=== PATIENT | male | born 1965 | race Caucasian/White ===

== ENCOUNTER 2021-10-13 09:04 | Emergency (ER) | payer OTHER ==
[~2021-10-13] VITALS: Ht 175.3 cm; Wt 89.8 kg
[2021-10-13 09:22] VITALS: BP 144/81
--- NOTE | 2021-10-13 09:37 | NUR ---
56/M PRESENTS TO ED WITH C/O LOWER BACK PAIN RADIATING DOWN BILATERAL LEGS SINCE WEDNESDAY MORNING, DENIES RECENT INJURY OR TRAUMA. PATIENT REPORTS PAIN RADIATING DOWN RIGHT LEG ON WEDNESDAY BUT STATES TODAY PAIN IS NOW RADIATING DOWN BILATERAL LEGS. PATIENT REPORTS HE HAS BEEN TAKING TYLENOL BUT HAS FOUND NO RELIEF, DENIES NUMBNESS OR TINGLING.
--- NOTE | 2021-10-13 09:38 | NUR ---
56 Y/O MALE BIB SELF C/O LOWER BACK PAIN. PATIENT HAS 8/10 PRESSURE PAIN FROM LOWER BACK TO BILATERAL LEGS X 3 DAYS. PATIENT DENIES ANY INJURY OR TRAUMA. DENIES DYSURIA. MEDICAL HISTORY: DENIES NKDA
--- NOTE | 2021-10-13 09:47 | NUR ---
DR. BARROW EVALUATING PATIENT AT BEDSIDE.
[2021-10-13] MEDS ORDERED: KETOROLAC 60 MG/2 ML VIAL IM ONE (09:50)
[2021-10-13] MEDS ORDERED: CARI350T PO (09:51)
[2021-10-13] MEDS ORDERED: TRAM50TA1 PO (09:51)
[2021-10-13] MEDS ORDERED: NAPR-1704 PO (09:51)
--- NOTE | 2021-10-13 10:17 | NUR ---
Patient discharged with v/s stable. Written and verbal after care instructions given. Patient alert, oriented and verbalized understanding of instructions. Ambulatory with steady gait. All questions addressed prior to discharge. ID band removed. Patient advised to follow up with PMD. Rx of SOMA, NAPROXEN AND TRAMADOL given. Opportunity to ask questions provided and answered.
--- NOTE | 2021-10-13 10:18 | NUR ---
The patient's care was reviewed and supervised by Kori Barksdale RN.
== END 2021-10-13 10:17 | disposition home or self-care (01) ==
LOC: MED 09:04
DX: M54.50 Low back pain, unspecified (principal); Z79.899 Other long term (current) drug therapy
CPT/HCPCS: 96372; 99283; J1885